=== PATIENT | male | born 1945 | race Caucasian/White ===

== ENCOUNTER 2024-11-06 12:32 | Emergency (ER) | payer MEDICARE ==
[~2024-11-06] VITALS: Ht 180.3 cm; Wt 90.7 kg
--- NOTE | 2024-11-06 12:57 | ERN ---
ED Note History of Present Illness Stated Complaint: LEFT FOOT SWOLLEN Time Seen by MD: 12:34 Dictation: PATIENT IS AN 79-YEAR-OLD MALE HERE WITH HIS WITH COMPLAINTS OF LEFT LATERAL LUMBOSACRAL PAIN THAT RADIATES DOWN THE POSTERIOR RIGHT LEG AND THEN ENDS UP IN THE ANTERIOR [place] AREA FOR THREE MONTHS. ADDITIONALLY HE IS HAVING LEFT HIP PAIN HE HAS HAD FOR THE SAME AMOUNT OF TIME. WAS SEEN IN BY HIS DOCTOR IN [place] AND HAD A ULTRASOUND-GUIDED INJECTION OF HIS LEFT HIP AND WAS TOLD HE HAD TROCHANTERIC BURSITIS. HE IS ALSO SEEN A AN EMERGENCY ROOM LOCALLY AND WAS DIAGNOSED AFTER CT AND IMAGING WITH BURSITIS AND LUMBOSACRAL FORAMINAL STENOSIS. THEY GAVE HIM PREDNISONE LAST NIGHT AND A SHOT TOLD HIM TO FIND A LOCAL DOCTOR AND THEY SAID THEY HAVE BEEN UNABLE TO DO SO. PATIENT IS AMBULATORY AT THE SCENE, POSITIVE LEG RAISE TO THE LEFT SIDE 10. HE DENIES CHANGES IN BOWEL OR BLADDER FUNCTION. Allergies: Coded Allergies: No Known Drug Allergies (Unverified Allergy, Unknown, 11/06/24) Past Medical History RN Note Reviewed/Agreed w/PFSH: Yes Review of System Dictation CONSTITUTIONAL: NEGATIVE EXCEPT FOR HPI HEAD/FACE: NEGATIVE EXCEPT FOR HPI EENT: NEGATIVE EXCEPT FOR HPI RESPIRATORY: NEGATIVE EXCEPT FOR HPI GASTROINTESTINAL/ABDOMINAL: NEGATIVE EXCEPT FOR HPI GENITOURINARY: NEGATIVE EXCEPT FOR HPI MUSCULOSKELETAL: NEGATIVE EXCEPT FOR HPI LEFT LATERAL HIP PAIN DIFFUSE LEFT LOWER LUMBOSACRAL TENDERNESS INTEGUMENTARY: NEGATIVE EXCEPT FOR HPI NEUROLOGICAL/PSYCH: NEGATIVE EXCEPT FOR HPI HEMATOLOGIC/LYMPHATIC: NEGATIVE EXCEPT FOR HPI ALL SYSTEMS NEGATIVE, EXCEPT NOTED ABOVE. 13 POINT REVIEW OF SYSTEMS ASSESSED AND ALL NEGATIVE EXCEPT FOR ABOVE. Initial Vital Sign VS Vital Signs Date Time Temp Pulse Resp B/P (MAP) Pulse Ox O2 Delivery O2 Flow Rate FiO2 11/06/24 13:02 97.9 71 16 175/105 97 Room Air Physical Exam Dictation VITAL SIGNS REVIEWED GENERAL APPEARANCE: ALERT, ORIENTED X 3, MODERATE ACUTE DISTRESS, WELL DEVELOPED, NOURISHED. HEAD AND FACE: NON-TRAUMATIC. EYES: PERRL, PINK CONJUNCTIVAS, EYELID NO TRAUMA, ANTERIOR CHAMBER WITH ARCUS SENILIS. EARS: PINNAS INTACT AND NO SIGNS OF TRAUMA OR ERYTHEMA EAR CANALS CLEAR AND NO DISCHARGE TM NO ERYTHEMA NOSE: NO DISCHARGE, NO BLEEDING. OROPHARYNX: MOUTH NORMAL, TONGUE PINK, PHARYNX CLEAR,NO ERYTHEMA, TONSILS NO EXUDATES, NO ABSCESSES NOTED, MUCOUS MEMBRANE MOIST NECK: SUPPLE, NON-TENDER, NO THYROMEGALY, NO MASSES, NO JVD, NO BRUITS BREAST:DEFERRED CHEST:NO TENDERNESS, NO CREPITUS, NO PARADOXICAL MOVEMENT, NO RETRACTIONS LUNGS:CLEAR, WELL-VENTILATED, SYMMETRIC, NO RALES, NO WHEEZING, NO RHONCHI, NO STRIDOR, GOOD BREATH SOUNDS BILATERALLY HEART: REGULAR RATE, REGULAR RHYTHM, NO MURMUR, NO GALLOPS VASCULAR: NO PERIPHERAL EDEMA, ABDOMEN: SOFT, POSITIVE BOWEL SOUNDS, NONDISTENDED, NO GUARDING, NONTENDER, NO REBOUND, NO MASSES NO HEPATOMEGALY, NO SPLENOMEGALY, NO CHANCE'S SIGN, NO HERNIAS. RECTAL: DEFERRED GENITAL: DEFERRED NEUROLOGICAL: NORMAL SPEECH, MOTOR FUNCTION INTACT, SENSORY FUNCTION INTACT MUSCULOSKELETAL: NECK NONTENDER, FULL RANGE OF MOTION, DIFFUSE LEFT LATERAL LUMBOSACRAL TENDERNESS, FULL RANGE OF MOTION, POSITIVE STRAIGHT LEG RAISE 10 LEFT EXTREMITIES: DECREASED RANGE OF MOTION TENDERNESS TO LEFT LATERAL HIP. PATIENT IS FULL WEIGHT-BEARING WITHOUT SHORTENING OR ROTATION. SKIN: COLOR PINK, DRY, NO TURGOR, NO RASH, NO LACERATIONS, NO ABRASIONS, NO CONTUSIONS. LYMPHATIC: DEFERRED Results (Laboratory/Radiology) Labs Reviewed?: Yes ED Course ED Course Orders Procedure Category Date Status Time Dexamethasone 4mg/Ml PHA 11/06/24 Complete 1ml Vial (Dexametha 13:00 Acetaminophen With PHA 11/06/24 Complete Codeine (Tylenol-Code 13:00 Ketorolac PHA 11/06/24 Complete Tromethamine 30mg/Ml 13:00 Current Medications Medications (Trade) Dose Ordered Sig/Haja Route PRN Reason Start Time Stop Time Status Last Admin Dose Admin Acetaminophen/ Codeine Phosphate (TYLenol-coDEINE TAB) 2 tab ONCE ONCE PO 11/06/24 13:00 11/06/24 13:02 DC Dexamethasone Sodium Phosphate (dexaMETHasone 4MG/ML 1ML VIAL) 8 mg ONCE ONCE IM 11/06/24 13:00 11/06/24 13:02 DC Ketorolac Tromethamine (toRADol) 30 mg ONCE ONCE IM 11/06/24 13:00 11/06/24 13:02 DC Vital Signs Date Time Temp Pulse Resp B/P (MAP) Pulse Ox O2 Delivery O2 Flow Rate FiO2 11/06/24 13:02 97.9 71 16 175/105 97 Room Air 1515/PATIENT HAD CT OF THE LUMBAR SPINE AND X-RAYS DONE LAST NIGHT IT EXCEPTIONAL ER. HE WAS GIVEN MEDROL DOSEPAK AND TOLD TO FIND A LOCAL DOCTOR, STATES SHE HAS HAD TROUBLE LOCATING A DOCTOR TODAY. PATIENT STATES THE PAIN IS BEING MODERATE IT WITH MEDROL DOSEPAK STEROIDS HE WAS MADE AWARE THAT HE NEEDS AN ORTHOPEDIC CONSULTATION FOR HIS LEFT TROCHANTER BURSITIS AND WE WILL NEED TO SEE A NEUROSURGEON FOR HIS FORAMINAL STENOSIS BASED ON THE CT LAST NIGHT. PATIENT IN HIS WERE GIVEN A LIST OF LOCAL PRIMARY CARE DOCTORS TO FOLLOW UP, GIVEN THE NAME OF DR. LIZBETH Phillips Medical Decision Making MDM Medical discharge making based on pain management He will be discharged home with Tylenol No. Referred to family practice physicians on staff for follow up on his chronic lumbar pain and foraminal stenosis based on the CT He will be referred to Dr. Lizbeth Phillips for follow up on his hip pain. DX & DISP Disposition: Discharge Departure Impression: Primary Impression: Trochanteric bursitis, left hip Additional Impression: Foraminal stenosis of lumbar region Condition: Stable Scripts Acetaminophen with Codeine (Acetaminophen-Cod #3 Tablet) 300 Mg-30 Mg Tablet 1 TAB PO Q4H PRN for Moderate to severe, #20 TAB 0 Refills Prov: BOLA FUNES [employer] 11/06/24 Additional Instructions: Follow-up with primary care provider in 1 to 2 days. Take medications as directed here in the emergency room. Okay to continue home medications unless otherwise discussed during your visit in the emergency room today. Return to your nearest emergency room if symptoms worsen or if there is no improvement. Call 911 if you need immediate assistance. Take Tylenol or Motrin [id number] as needed and if no contraindications are present. Increase oral hydration. A wound culture or urine culture was ordered here in the emergency room department please follow-up with primary care provider and advise them to get repeat ports from our facility. If you had any Luis wrap/splints that were applied here, please do not remove them until you see your primary care or specialty. Continue your medications from your ER visit last night. Call orthopedic surgeon for appointment in the next 1-2 days. Be sure to take your records from your ER visit at [facility] emergency room to your appointment with Orthopedics Referrals: SELF,REFERRAL (PCP) LIZBETH PHILLIPS MD Time of Disposition: 15:19 I have reviewed the case, and I agree with, Diagnosis and Plan BLOA FUNES NP Nov 06, 2024 12:57
[2024-11-06] MEDS ORDERED: ACET-2079 PO (15:43)
[2024-11-06] MEDS: dexaMETHasone SOD PHOSPHATE 4 MG/ML 1ML VIAL IM ONE (18:17)
[2024-11-06] MEDS: ketOROlac 30MG VIAL (30MG/ML) IM ONE (18:18)
[2024-11-06] MEDS: acetaMINOPHEN WITH coDEINE 1 TAB TAB PO ONE (18:19)
[2024-11-06 18:29] VITALS: BP 170/88; PULSE 75; RESP 16; TEMP 98.3; O2SAT 98
[2024-11-06] MEDS ORDERED: dexaMETHasone SOD PHOSPHATE 4 MG/ML 1ML VIAL IM ONE (18:30)
[2024-11-06] MEDS ORDERED: ketOROlac 30MG VIAL (30MG/ML) IM ONE (18:30)
[2024-11-06] MEDS ORDERED: acetaMINOPHEN WITH coDEINE 1 TAB TAB PO ONE (18:30)
== END 2024-11-06 18:39 | disposition home or self-care (01) ==
LOC: EDH 12:32
DX: M70.62 Trochanteric bursitis, left hip (principal); M48.061 Spinal stenosis, lumbar region without neurogenic claudication
CPT/HCPCS: 99284; 96372 ×2; J1100; J1885